=== PATIENT | female | born 1970 | race African-American/Black ===

== ENCOUNTER 2017-06-02 17:48 | Emergency (ER) | payer OTHER ==
[~2017-06-02] VITALS: Ht 172.7 cm; Wt 127.5 kg
[2017-06-02] MEDS ORDERED: LYRICA150 MG PO (18:30)
[2017-06-02] MEDS ORDERED: HYDROCHLOROTHIA25 MG PO (18:31)
[2017-06-02] MEDS ORDERED: METHADOSE10 MG/1 ML PO (18:31)
[2017-06-02] MEDS ORDERED: CLARITIN10 M3 PO (18:31)
[2017-06-02 19:57] LABS: HEMATOCRIT 39.5 % (36.0-46.0); MCH 32.3 PG (29.0-34.0); MCHC 34.2 G/DL (30.0-36.0); MCV 94.5 FL (83-99); MEAN PLAT.VOLUME 10.8 uM^3 (9.5-12.4); PLATELET COUNT 365 K/uL (156-360); RBC DIS.WIDTH-CV 14.6 % (11.8-14.6); RBC DIS.WIDTH-SD 50.6 % (39-53); RED BLOOD COUNT 4.18 M/uL (3.80-5.20); WHITE BLOOD COUNT 14.6 K/uL (4.1-10.2)
[2017-06-02 20:07] LABS: CHLORIDE 99 mEq/L (99-109); POTASSIUM 3.8 mEq/L (3.7-5.4); SODIUM 140 mEq/L (136-147)
[2017-06-02 20:08] LABS: GLUCOSE 110 mg/dL (70-99)
[2017-06-02 20:10] LABS: ANION GAP 14 MEQ/L (2-14)
[2017-06-02 20:12] LABS: GFR ESTIMATE (CALCULATED) > 59 mL/min/
[2017-06-02 20:13] LABS: UREA NITROGEN (BUN) 9 mg/dL (9-23)
[2017-06-02 20:18] LABS: TROP-I INTERPRETATION NEGATIVE; TROPONIN-I < 0.01 ng/mL (0.0-0.30)
[2017-06-02 20:21] LABS: QUANTITATIVE HCG < 4.0 MIU/ML
[2017-06-02 22:30] LABS: TROP-I INTERPRETATION NEGATIVE; TROPONIN-I < 0.01 ng/mL (0.0-0.30)
[2017-06-02 22:58] VITALS: BP 130/82
== END 2017-06-02 23:00 | disposition home or self-care (01) ==
LOC: EME 17:48
PROVIDERS: Physician Assistant Medical
DX: R07.9 Chest pain, unspecified (principal); K21.9 Gastro-esophageal reflux disease without esophagitis; I10 Essential (primary) hypertension; R05 Cough
CPT/HCPCS: 71020; 80048; 84484; 84702; 85027; 93005; 99281; 99284